=== PATIENT | male | born 1985 | race Caucasian/White ===

== ENCOUNTER 2016-07-13 06:15 | Emergency (ER) | payer BC | END 2016-07-13 07:53 | disposition home or self-care (01) | LOC: ER 06:15 | DX: K08.89 Other specified disorders of teeth and supporting structures (principal); K04.7 Periapical abscess without sinus; F17.210 Nicotine dependence, cigarettes, uncomplicated | CPT/HCPCS: 36415; 80053; 80329; 85025; 85610; 85730 ==